=== PATIENT | female | born 1970 | race Caucasian/White ===

== ENCOUNTER 2019-01-09 15:38 | Outpatient (REF) | payer MEDICARE, MEDICAID, SELFPAY ==
[2019-01-09 21:12] LABS: Abs Immature Grans 0.03 k/cumm (0.0-0.09); Absolute Eosinophil Count 0.26 k/cumm (0.0-0.7); Absolute Lymphocyte Count 3.66 k/cumm (1.2-3.4); Absolute Monocyte Count 0.65 k/cumm (0.11-0.7); Basophils % 0.3; Eosinophils % 1.8; HCT 40.2 % (36.0-46.0); HGB 13.3 g/dL (12.0-15.5); Immature Grans % 0.2; Lymphocytes % 25.5; Mean Corp. HGB Concentration 33.1 g/dL (32.0-36.0); Mean Corpuscular Hemoglobin 33.2 pg (27.0-33.0); Mean Corpuscular Volume 100.2 fL (80-95); Mean Platelet Volume 11.6 fL (8.0-11.0); Monocytes % 4.5; Neutrophils % 67.7; Platelet Count 307 x1000/uL (130-400); RBC 4.01 m/cumm (4.00-5.20); RBC Distribution Width 13.2 % (11.7-14.6); White Blood Cell Count 14.35 k/cumm (4.4-10.8)
[2019-01-09 21:24] LABS: Absolute Basophil Count 0.04 k/cumm (0.0-0.2); Absolute Neutrophil Count 9.71 k/cumm (1.2-6.7)
[2019-01-09 21:33] LABS: ALT 57 U/L (12-78); AST 35 U/L (15-37); Albumin 3.9 g/dL (3.4-5.0); Alkaline Phosphatase 86 U/L (46-116); Anion Gap 6.5 mmol/L (3-11); BUN 12 mg/dL (7-18); Bilirubin, Total 0.1 mg/dL (0.2-1.0); CO2 30.5 mmol/L (21.0-32.0); CREATININE 1.01 mg/dL (0.55-1.02); Calcium 9.3 mg/dL (8.5-10.1); Chloride 102 mmol/L (98-107); Cholesterol 256 mg/dL (50-200); Estimated GFR 59.01 (mL/min/1.73m2); Glucose 74 mg/dL (70-100); HDL Cholesterol 40 mg/dL (40-60); LDL CHOLESTEROL 163 mg/dL (<100); Sodium 139 mmol/L (136-145); TSH (W/Ref FT4) 96.18 uIU/mL (0.358-3.74); Total Protein 6.9 g/dL (6.4-8.2); Triglyceride 268 mg/dL (30-150)
[2019-01-09 21:52] LABS: FREE T4 0.36 ng/dL (0.76-1.46)
[2019-01-11 12:02] LABS: Hepatitis C Ab w Rflx HCV PCR Negative (NEGAT)
[2019-01-13 10:57] LABS: Hepatitis A IgM Ab Negative (Negative)
[2019-01-13 14:38] LABS: HBs Antibody, Quant <3.1 mIU/mL; Hepatitis B Surface Ab Negative
== END 2019-01-09 15:58 ==
LOC: NCHCN 15:38
PROVIDERS: PCP Family Medicine; Visit Provider Family Medicine
DX: R10.9 Unspecified abdominal pain (principal); E03.9 Hypothyroidism, unspecified; J44.9 Chronic obstructive pulmonary disease, unspecified; Z11.59 Encounter for screening for other viral diseases
CPT/HCPCS: 80053; 80061; 83721; 86706; 86803; 87340; 84439; 84443; 85025; 86709

== ENCOUNTER 2019-02-19 12:41 | Outpatient (REF) | payer OTHER, SELFPAY ==
[2019-02-19 22:26] LABS: TSH (W/Ref FT4) 6.39 uIU/mL (0.358-3.74)
[2019-02-19 22:43] LABS: FREE T4 0.81 ng/dL (0.76-1.46)
== END 2019-02-19 13:01 ==
LOC: NCHCN 12:41
PROVIDERS: PCP Family Medicine; Visit Provider Family Medicine
DX: E03.9 Hypothyroidism, unspecified (principal)
CPT/HCPCS: 84439; 84443

== ENCOUNTER 2021-11-18 12:33 | Outpatient (REF) | payer OTHER, MEDICAID, SELFPAY ==
[2021-11-18 15:24] LABS: ALT 20 U/L (14-59); AST 18 U/L (15-37); Albumin 3.8 g/dL (3.4-5.0); Alkaline Phosphatase 80 U/L (46-116); Anion Gap 8.6 mmol/L (3-11); BUN 9 mg/dL (7-18); Bilirubin, Total 0.2 mg/dL (0.2-1.0); CO2 29.4 mmol/L (21.0-32.0); CREATININE 0.9 mg/dL (0.55-1.02); Calcium 9.3 mg/dL (8.5-10.1); Chloride 104 mmol/L (98-107); Glucose 112 mg/dL (74-106); Potassium 4.3 mmol/L (3.5-5.1); Sodium 142 mmol/L (136-145); TSH (W/Ref FT4) 36.34 uIU/mL (0.36-3.74); Total Protein 6.7 g/dL (6.4-8.2)
[2021-11-18 15:48] LABS: FREE T4 0.81 ng/dL (0.76-1.46)
[2021-11-18 16:01] LABS: Calculated LDL 222 mg/dL (<100); Cholesterol 301 mg/dL (<200); HDL Cholesterol 51 mg/dL (40-60); Triglyceride 144 mg/dL (<150)
[2021-11-21 01:44] LABS: Vitamin D 25 Total < 5 ng/mL (30-100)
== END 2021-11-18 12:34 | disposition home or self-care (01) ==
LOC: NCHCN 12:33
PROVIDERS: PCP Family Medicine; Visit Provider Family Medicine
DX: E03.9 Hypothyroidism, unspecified (principal); R10.9 Unspecified abdominal pain; F31.9 Bipolar disorder, unspecified; E55.9 Vitamin D deficiency, unspecified; E78.79 Other disorders of bile acid and cholesterol metabolism
CPT/HCPCS: 80053; 80061; 82306; 84439; 84443

== ENCOUNTER 2023-08-06 18:42 | Outpatient (REF) | payer MEDICARE, MEDICAID, SELFPAY ==
[2023-08-06 21:03] LABS: HCT 39.8 % (36.0-46.0); HGB 12.7 g/dL (11.2-15.7); MCH 29.6 pg (27.0-33.0); MCHC 31.9 % (32.0-36.0); MCV 93 fL (80-95); Platelet Count 278 10^3/uL (130-400); RBC 4.29 10^6/uL (3.93-5.22); RDW 15.6 % (11.7-14.6); RDW-SD 52.4 fL; WBC 13.88 10^3/uL (4.4-10.8)
[2023-08-06 21:25] LABS: ALT 38 U/L (14-59); AST 17 U/L (15-37); Alkaline Phosphatase 79 U/L (46-116); Anion Gap 6.4 mmol/L (3-11); BUN 7 mg/dL (7-18); Bilirubin, Total 0.3 mg/dL (0.2-1.0); CO2 30.6 mmol/L (21.0-32.0); CREATININE 0.8 mg/dL (0.55-1.02); Calcium 9.9 mg/dL (8.5-10.1); Calculated LDL 125 mg/dL (<100); Chloride 102 mmol/L (98-107); Cholesterol 209 mg/dL (<200); Estimated GFR 89.15 (mL/min/1.73m2); Glucose 108 mg/dL (74-106); HDL Cholesterol 65 mg/dL (40-60); Potassium 5.2 mmol/L (3.5-5.1); Sodium 139 mmol/L (136-145); TSH (W/Ref FT4) 8.03 uIU/mL (0.36-3.74); Total Protein 7.3 g/dL (6.4-8.2); Triglyceride 97 mg/dL (<150)
[2023-08-06 21:44] LABS: FREE T4 1.55 ng/dL (0.76-1.46)
== END 2023-08-06 18:43 | disposition home or self-care (01) ==
LOC: NCHCN 18:42
PROVIDERS: PCP Family Medicine; Visit Provider Family Medicine
DX: J44.9 Chronic obstructive pulmonary disease, unspecified (principal); F31.9 Bipolar disorder, unspecified
CPT/HCPCS: 80053; 80061; 85027; 84439; 84443